=== PATIENT | female | born 1995 | race Caucasian/White ===

== ENCOUNTER 2023-04-17 09:36 | Emergency (ER) | payer BC, SELFPAY ==
[2023-04-17 09:45] VITALS: BP 130/84; PULSE 109; RESP 20; TEMP 36.8; O2SAT 100; BMI 30.9
[2023-04-17 10:17] VITALS: BP 130/84; PULSE 109; RESP 20; TEMP 36.8; O2SAT 100
[2023-04-17 10:17] LABS: Appearance,Urine Clear (Clear); Color,Urine Yellow (Yellow); Microscopic, Urine URINE MICROSCOPIC (MICROSCOPIC)
[2023-04-17 10:18] LABS: Bilirubin,Urine Negative (Negative); Blood, Urine Trace (Negative); Glucose,Urine (UA) Negative (Negative); Ketones,Urine Negative (Negative); Leukocyte Esterase,Urine 3+ (Negative); Nitrate,Urine Positive (Negative); Protein,Urine Negative (Negative); Urobilinogen,Urine 0.2 EU/dl (0.2)
--- NOTE | 2023-04-17 10:19 | EXP.UTC ---
Discharge Plan Disposition Patient Disposition: Home, Self-Care Condition: Good Prescriptions Prescriptions: New nitrofurantoin monohyd/m-cryst [Macrobid] 100 mg capsule 100 mg PO BID 7 Days Qty: 14 0RF Rx Instructions: must administer with a meal/food ondansetron 8 mg tablet,disintegrating 8 mg PO TID PRN (Reason: Nausea) Qty: 30 0RF Referrals Follow up/Referrals: Parveen Valdivia MD [Primary Care Provider] - See instructions Activity Restrictions/Add. Instructions Additional Instructions/Restrictions: Urine culture should be back on Tuesday Take all antibiotics as prescribed as gone, with Zofran as needed Clinical Impressions Clinical Impression: UTI (urinary tract infection) Qualifiers: Urinary tract infection type: acute cystitis Hematuria presence: without hematuria Qualified Code(s): N30.00 - Acute cystitis without hematuria Qualifiers: Weeks of gestation: 27 weeks Qualified Code(s): Z3A.27 - 27 weeks gestation of Instructions Patient Instructions: DI for Urinary Tract Infection (UTI) Discharge ED Provider: Angelia Delaney [facility] – [place], [place] HPI General Stated complaint: possible uti Mode of Arrival: Ambulatory Source of Information: Patient Limitations: No Limitations Time Seen by Provider: 04/17/23 10:19 Description of Symptoms (Recalled from Triage Doc. by RN): PATIENT C/O BURNING WITH URINATION AND RIGHT LOWER BACK PAIN. SHE REPORTS BEING TREATED FOR UTI WITH CEFDINIR LAST TUESDAY HEENT Symptoms (Recalled from RN notes): No Resp Symptoms (Recalled from RN notes): No Skin Symptoms (Recalled from RN notes): No MS Symptoms (Recalled from RN notes): No Functional Status (Recalled from RN notes): WNL History of Present Illness Provider Complaint: Patient was seen 10 days ago by PCP for UTI. She was treated with Cefdinir. Their office called 2 days ago and stated urine culture grew E Coli. She completed Cefdinir that same day. She was feeling some better, but not completely symptom free. Today, she is again having dysuria, right flank pain. No fever. She has some nausea all the time as she is 27 weeks , but nothing unusual. Tolerating fluids and food ok. No vomiting or diarrhea. Called OB crop pest control specialist and they suggested she come to [facility] to be retested. Onset (ago): day(s) (10) Relieving factors: none Exacerbating factors: none Associated symptoms: denies other symptoms Treatments prior to arrival: other (Cefdinir) Related Data Previous Rx's Medication Instructions Recorded nitrofurantoin 100 mg PO BID 7 days #14 caps 04/17/23 monohydrate/macrocrystals 100 mg capsule (Macrobid) ondansetron 8 mg disintegrating 8 mg PO TID PRN Nausea #30 tabs 04/17/23 tablet Allergies Allergy/AdvReac Type Severity Reaction Status Date / Time No Known Allergies Allergy Verified 11/04/20 11:08 Worker's Comp Is this a Worker's Comp case?: No [facility] Disclaimer: The information contained in this section may have been updated after the patient was seen, as this information can be updated by other users. Medical History (Updated 04/17/23 @ 10:33 by MARY BETH Dooley) Urinary tract infection Surgical History (Updated 04/17/23 @ 10:09 by Araseli Irby RN) History of tonsillectomy History of tympanostomy tube placement Social History Smoking Status: Never smoker alcohol intake: never current occupational status: employed Travel in the last 8 weeks: None ROS Obtained: Yes All systems reviewed & no additional complaints except as documented Genitourinary Female Genitourinary: Reports dysuria and Reports flank pain Physical Exam General General appearance: alert and in no apparent distress Head Head exam: atraumatic, normocephalic and normal inspection Eye Eye exam: Present normal appearance, PERRL and EOMI ENT ENT exam: Present normal exam, normal oropharynx, mucous membranes moist, TM's normal bilaterally and normal exter
[2023-04-17 10:34] LABS: Bacteria,Urine 1+ /lpf; RBC,Urine Occasional #/hpf (0-3); Squamous Epithelial Cell,Urine Occasional #/hpf (0-5)
== END 2023-04-17 10:40 | disposition home or self-care (01) ==
PROVIDERS: Emergency Provider Physician Assistant; PCP Internal Medicine Adolescent Medicine
DX: O23.43 Unspecified infection of urinary tract in pregnancy, third trimester (principal); N30.00 Acute cystitis without hematuria; Z3A.27 27 weeks gestation of pregnancy
CPT/HCPCS: 81001; 87086; 99204; 99212; G0463

== ENCOUNTER 2023-05-11 18:06 | Emergency (ER) | payer BC, SELFPAY ==
[2023-05-11 18:06] VITALS: BP 128/79; PULSE 99; RESP 18; TEMP 36.6; O2SAT 98; BMI 31.6
[2023-05-11 18:36] LABS: Microscopic, Urine URINE MICROSCOPIC (MICROSCOPIC)
[2023-05-11 18:39] LABS: Appearance,Urine CLEAR (Clear); Bilirubin,Urine Negative (Negative); Blood, Urine 2+ (Negative); Color,Urine YELLOW (Yellow); Glucose,Urine (UA) Negative (Negative); Ketones,Urine Negative (Negative); Leukocyte Esterase,Urine 3+ (Negative); Nitrate,Urine Negative (Negative); PH,Urine 6.5 (5.0-8.5); Protein,Urine 2+ (Negative); Urobilinogen,Urine 0.2 EU/dl (0.2)
[2023-05-11 18:47] LABS: Bacteria,Urine Trace /lpf; WBC,Urine 20-50 #/hpf (0-3)
--- NOTE | 2023-05-11 18:48 | EXP.UTC ---
Discharge Plan Disposition Patient Disposition: Home, Self-Care Condition: Good Prescriptions Prescriptions: New cephalexin [cephalexin] 500 mg tablet 500 mg PO BID 7 Days Qty: 14 0RF No Action nitrofurantoin monohyd/m-cryst [Macrobid] 100 mg capsule 100 mg PO BID Rx Instructions: must administer with a meal/food Referrals Follow up/Referrals: Parveen Valdivia MD [Primary Care Provider] - See instructions Activity Restrictions/Add. Instructions Additional Instructions/Restrictions: Increase fluids, water and not soda or tea. Can drink cranberry juice or cranberry extract. Wipe front to back Wear cotton underwear Empty bladder after intercourse Start antibiotics immediately and make sure you take the full course although you may start to see improvement over the next 48 hours. You can eat yogurt or take probiotics to decrease diarrhea or yeast infection caused by the antibiotic Be sure to follow-up anytime for new or worsening symptoms in 48 hours for wound urine culture results be sure to let you PCP no recent urine for culture so they can request records and ensure that you have appropriate antibiotic if you are not getting better or getting worse. If symptoms worsen or do not improve return or be seen in the ER. Follow-up with primary care this week. Clinical Impressions Clinical Impression: UTI (urinary tract infection) Qualifiers: Urinary tract infection type: acute cystitis Hematuria presence: without hematuria Qualified Code(s): N30.00 - Acute cystitis without hematuria Instructions Patient Instructions: DI for Urinary Tract Infection (UTI) Discharge ED Provider: Marielena ([facility])Mauro [facility] [place] HPI General Stated complaint: possible uti Mode of Arrival: Ambulatory Source of Information: Patient Limitations: No Limitations Time Seen by Provider: 05/11/23 18:48 Description of Symptoms (Recalled from Triage Doc. by RN): UTI symptoms buring, pressure, and pain in lower back HEENT Symptoms (Recalled from RN notes): No Resp Symptoms (Recalled from RN notes): No Skin Symptoms (Recalled from RN notes): No MS Symptoms (Recalled from RN notes): No Functional Status (Recalled from RN notes): n/a History of Present Illness Provider Complaint: 27 yr old female presents for burning, pressure and low back pain. is 30 wks Related Data Home Medications Medication Instructions Recorded Confirmed nitrofurantoin 100 mg PO BID abx 05/11/23 05/11/23 monohydrate/macrocrystals 100 mg capsule (Macrobid) Previous Rx's Medication Instructions Recorded cephalexin 500 mg tablet 500 mg PO BID 7 days #14 tabs 05/11/23 Allergies Allergy/AdvReac Type Severity Reaction Status Date / Time No Known Allergies Allergy Verified 05/11/23 18:31 Worker's Comp Is this a Worker's Comp case?: No [facility] Disclaimer: The information contained in this section may have been updated after the patient was seen, as this information can be updated by other users. 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[employer]) Smoking Status: Never smoker alcohol intake: never current occupational status: employed Travel in the last 8 weeks: None ROS Obtained: Yes All systems reviewed & no additional complaints except as documented Constitutional Constitutional: Reports system reviewed and no additional complaints, except as documented Eyes Eyes: Reports system reviewed and no additional complaints, except as documented ENT Ears, Nose, Mouth, and Throat: Reports system reviewed and no additional complaints, except as documented Cardiovascular Cardiovascular: Reports system reviewed and no additional complaints, except as documented
[2023-05-11 19:17] VITALS: BP 128/79; PULSE 99; RESP 18; TEMP 36.6; O2SAT 98
== END 2023-05-11 19:16 | disposition home or self-care (01) ==
PROVIDERS: Emergency Provider Nurse Practitioner Family; PCP Internal Medicine Adolescent Medicine
DX: O23.43 Unspecified infection of urinary tract in pregnancy, third trimester (principal); B96.89 Other specified bacterial agents as the cause of diseases classified elsewhere; Z3A.30 30 weeks gestation of pregnancy; M54.59 Other low back pain
CPT/HCPCS: 81001; 87086; 87088; 87186; 99212; 99214; G0463